=== PATIENT | female | born 2005 | race Two or more races ===

== ENCOUNTER → 2025-01-19 | Outpatient (CLI) | payer MEDICAID ==
[2025-01-19 17:45] LABS: HEMOGLOBIN 10.9 g/dl (12.0-15.5); MEAN CORPUSCULAR HEMOGLOBIN 25.9 pg (27.0-33.0); MEAN CORPUSCULAR HGB CONC 32.1 g/dl (32.0-36.5); MEAN CORPUSCULAR VOLUME 80.8 fl (80.0-96.0); PLATELET COUNT, AUTOMATED 265 10^3/uL (150-450); RED BLOOD COUNT 4.21 10^6/uL (4.00-5.40); WHITE BLOOD COUNT 10.1 10^3/uL (4.0-10.0)
[2025-01-19 18:13] LABS: HIV 1&2 SCREEN NEGATIVE (NEGATIVE)
[2025-01-19 18:21] LABS: HEPATITIS C VIRUS ABY INDEX 0.03 INDEX (<0.8)
[2025-01-19 19:29] LABS: GC DNA AMPLIFICATION NEGATIVE (NEGATIVE)
== END ==
LOC: M PLALAB 14:21
PROVIDERS: ATTEND Obstetrics & Gynecology
DX: Z13.79 Encounter for other screening for genetic and chromosomal anomalies (principal)

== ENCOUNTER → 2025-05-21 | Outpatient (CLI) | payer OTHER ==
[2025-05-21 15:16] LABS: PLATELET COUNT, AUTOMATED 271 10^3/uL (150-450)
[2025-05-21 15:18] LABS: GLUCOSE CHALLENGE TEST 1 HOUR 101 MG/DL (LESS THAN 140)
[2025-05-21 15:48] LABS: HIV 1&2 SCREEN NEGATIVE (NEGATIVE)
[2025-05-21 15:55] LABS: HEPATITIS C VIRUS ABY INDEX 0.02 INDEX (<0.8)
[2025-05-21 16:19] LABS: Trichomonas vaginalis (AMP) NOT DETECTED (NEGATIVE)
[2025-05-21 16:42] LABS: GC DNA AMPLIFICATION NEGATIVE (NEGATIVE)
== END ==
LOC: M PLALAB 12:43
PROVIDERS: ATTEND Nurse Practitioner Family
DX: Z34.82 Encounter for supervision of other normal pregnancy, second trimester (principal)

== ENCOUNTER → 2025-05-21 | Outpatient (CLI) | payer OTHER | LOC: M WHC 11:55 | PROVIDERS: ATTEND Nurse Practitioner Family | DX: Z34.82 Encounter for supervision of other normal pregnancy, second trimester (principal); Z3A.25 25 weeks gestation of pregnancy ==

== ENCOUNTER → 2025-05-22 | Outpatient (CLI) | payer OTHER, MEDICAID ==
[2025-05-22 17:10] LABS: IRON (FE) 38.0 UG/DL (50-170)
[2025-05-22 17:13] LABS: VITAMIN B12 LEVEL 337.0 PG/ML (211-911)
== END ==
LOC: M PLALAB 15:23
PROVIDERS: ATTEND Advanced Practice Midwife
DX: O99.012 Anemia complicating pregnancy, second trimester (principal); Z3A.00 Weeks of gestation of pregnancy not specified

== ENCOUNTER → 2025-05-26 | Outpatient (CLI) | payer OTHER | LOC: M RAD 14:56 | PROVIDERS: ATTEND Advanced Practice Midwife | DX: O36.5992 Maternal care for other known or suspected poor fetal growth, unspecified trimester, fetus 2 (principal); Z3A.27 27 weeks gestation of pregnancy ==

== ENCOUNTER → 2025-06-02 | Outpatient (CLI) | payer OTHER | LOC: M WHC 07:24 | PROVIDERS: ATTEND Advanced Practice Midwife | DX: O36.5990 Maternal care for other known or suspected poor fetal growth, unspecified trimester, not applicable or unspecified (principal); Z3A.00 Weeks of gestation of pregnancy not specified ==

== ENCOUNTER → 2025-06-09 | Outpatient (CLI) | payer OTHER | LOC: M WHC 07:25 | PROVIDERS: ATTEND Advanced Practice Midwife | DX: O36.5993 Maternal care for other known or suspected poor fetal growth, unspecified trimester, fetus 3 (principal); Z3A.29 29 weeks gestation of pregnancy; O32.1XX0 Maternal care for breech presentation, not applicable or unspecified ==

== ENCOUNTER 2025-06-10 09:03 | Outpatient (CLI) | payer OTHER ==
[~2025-06-10] VITALS: Ht 162.6 cm; Wt 57.3 kg
[~2025-06-10 09:03] MED LIST: ALBUTEROL SULFATE 2.5 MG/0.5 ML INH CONCENTRATE NEB SOLN INH PRN; EPINEPHrine INJ 1 MG/ML 1ML AMP IM PRN; diphenhydrAMINE 50 MG/ML VIAL IV PRN
[2025-06-10 09:30] VITALS: BP 96/53; O2SAT 100
[2025-06-10] MEDS: IRON SUCROSE 200MG IVP IV ONE (09:50)
[2025-06-10 10:50] VITALS: BP 98/55; O2SAT 100
== END 2025-06-10 10:50 | disposition home or self-care (01) ==
LOC: M INFU 09:03
PROVIDERS: ATTEND Advanced Practice Midwife
DX: O99.019 Anemia complicating pregnancy, unspecified trimester (principal); Z3A.00 Weeks of gestation of pregnancy not specified
CPT/HCPCS: 96374; J1756

== ENCOUNTER → 2025-06-16 | Outpatient (CLI) | payer OTHER | LOC: M WHC 07:42 | PROVIDERS: ATTEND Advanced Practice Midwife | DX: O36.5920 Maternal care for other known or suspected poor fetal growth, second trimester, not applicable or unspecified (principal); Z3A.30 30 weeks gestation of pregnancy ==

== ENCOUNTER 2025-06-17 08:55 | Outpatient (CLI) | payer OTHER, MEDICAID ==
[~2025-06-17] VITALS: Ht 162.6 cm; Wt 57.2 kg
[2025-06-17 09:15] VITALS: BP 99/54; O2SAT 100
[2025-06-17] MEDS: IRON SUCROSE 200MG IVP IV ONE (09:21)
[2025-06-17 09:45] VITALS: BP 105/54; O2SAT 100
== END 2025-06-17 09:55 | disposition home or self-care (01) ==
LOC: M INFU 08:55
PROVIDERS: ATTEND Advanced Practice Midwife
DX: O99.019 Anemia complicating pregnancy, unspecified trimester (principal); Z3A.00 Weeks of gestation of pregnancy not specified; D64.9 Anemia, unspecified
CPT/HCPCS: 96374; J1756

== ENCOUNTER → 2025-06-19 | Outpatient (CLI) | payer OTHER ==
[2025-06-20 07:06] LABS: RUBELLA IgG FOR TORCH EVAL <0.90 index (Immune >0.99); RUBELLA IgM FOR TORCH EVAL <20.0 AU/mL (0.0-19.9)
== END ==
LOC: M PLALAB 09:43
PROVIDERS: ATTEND Advanced Practice Midwife
DX: O36.5990 Maternal care for other known or suspected poor fetal growth, unspecified trimester, not applicable or unspecified (principal)

== ENCOUNTER → 2025-06-23 | Outpatient (CLI) | payer OTHER | LOC: M WHC 07:40 | PROVIDERS: ATTEND Advanced Practice Midwife | DX: O36.5990 Maternal care for other known or suspected poor fetal growth, unspecified trimester, not applicable or unspecified (principal) ==

== ENCOUNTER 2025-06-24 08:43 | Outpatient (CLI) | payer MEDICAID, OTHER ==
[~2025-06-24] VITALS: Ht 162.6 cm; Wt 58.0 kg
[2025-06-24 09:15] VITALS: BP 130/84; O2SAT 98
[2025-06-24] MEDS: IRON SUCROSE 200MG IVP IV ONE (09:28)
[2025-06-24 09:55] VITALS: BP 124/62; O2SAT 99
== END 2025-06-24 09:55 ==
LOC: M INFU 08:43
PROVIDERS: ATTEND Advanced Practice Midwife
DX: O99.019 Anemia complicating pregnancy, unspecified trimester (principal); Z3A.00 Weeks of gestation of pregnancy not specified; O36.5990 Maternal care for other known or suspected poor fetal growth, unspecified trimester, not applicable or unspecified
CPT/HCPCS: 96374; J1756

== ENCOUNTER → 2025-06-25 | Outpatient (CLI) | payer MEDICAID, OTHER ==
[2025-06-25 11:08] LABS: PLATELET COUNT, AUTOMATED 185 10^3/uL (150-450)
[2025-06-25 11:34] LABS: IRON (FE) 344.0 UG/DL (50-170); PERCENT SATURATION 86.4 % (13.2-45.0)
== END ==
LOC: M PLALAB 09:15
PROVIDERS: ATTEND Obstetrics & Gynecology
DX: O99.019 Anemia complicating pregnancy, unspecified trimester (principal)

== ENCOUNTER → 2025-06-30 | Outpatient (CLI) | payer OTHER | LOC: M WHC 07:35 | PROVIDERS: ATTEND Advanced Practice Midwife | DX: O36.5930 Maternal care for other known or suspected poor fetal growth, third trimester, not applicable or unspecified (principal); Z3A.32 32 weeks gestation of pregnancy ==

== ENCOUNTER → 2025-07-03 | Outpatient (CLI) | payer OTHER ==
[2025-07-03 14:17] LABS: PLATELET COUNT, AUTOMATED 169 10^3/uL (150-450)
== END ==
LOC: M PLALAB 11:00
PROVIDERS: ATTEND Advanced Practice Midwife
DX: O99.012 Anemia complicating pregnancy, second trimester (principal)

== ENCOUNTER → 2025-07-07 | Outpatient (CLI) | payer OTHER | LOC: M WHC 07:33 | PROVIDERS: ATTEND Advanced Practice Midwife | DX: O36.5930 Maternal care for other known or suspected poor fetal growth, third trimester, not applicable or unspecified (principal); Z3A.33 33 weeks gestation of pregnancy ==

== ENCOUNTER → 2025-07-14 | Outpatient (CLI) | payer OTHER ==
[~2025-07-14] MED LIST changes: -ALBUTEROL SULFATE 2.5 MG/0.5 ML INH CONCENTRATE NEB SOLN INH PRN; -EPINEPHrine INJ 1 MG/ML 1ML AMP IM PRN; +PRENTAB9 PO; -diphenhydrAMINE 50 MG/ML VIAL IV PRN
== END ==
LOC: M WHC 07:37
PROVIDERS: ATTEND Advanced Practice Midwife
DX: O36.5990 Maternal care for other known or suspected poor fetal growth, unspecified trimester, not applicable or unspecified (principal)

== ENCOUNTER 2025-07-15 11:12 | Emergency (ER) | payer OTHER ==
[2025-07-15] MEDS ORDERED: PRENTAB9 PO (11:45)
[2025-07-15] MEDS ORDERED: ACETAMINOPHEN 500 MG TAB PO ONE (12:15)
== END 2025-07-15 11:15 | disposition admitted as inpatient to this hospital (09) ==
LOC: M ED 11:12
DX: Z53.21 Procedure and treatment not carried out due to patient leaving prior to being seen by health care provider (principal)

== ENCOUNTER → 2025-07-15 | Outpatient (CLI) | payer OTHER ==
[~2025-07-15] VITALS: Ht 162.6 cm; Wt 60.3 kg
[2025-07-15 11:40] VITALS: BP 114/69
[2025-07-15] MEDS: ACETAMINOPHEN 500 MG TAB PO ONE (12:33)
== END ==
LOC: M LDO 11:18
PROVIDERS: ATTEND Advanced Practice Midwife
DX: O26.893 Other specified pregnancy related conditions, third trimester (principal); O36.5930 Maternal care for other known or suspected poor fetal growth, third trimester, not applicable or unspecified; O99.013 Anemia complicating pregnancy, third trimester; O99.343 Other mental disorders complicating pregnancy, third trimester; R10.2 Pelvic and perineal pain; D50.9 Iron deficiency anemia, unspecified; Z67.11 Type A blood, Rh negative; F31.81 Bipolar II disorder; F81.9 Developmental disorder of scholastic skills, unspecified; Z3A.34 34 weeks gestation of pregnancy
CPT/HCPCS: 59025; G0463

== ENCOUNTER → 2025-07-21 | Outpatient (CLI) | payer OTHER | LOC: M WHC 06:56 | PROVIDERS: ATTEND Advanced Practice Midwife | DX: O36.5993 Maternal care for other known or suspected poor fetal growth, unspecified trimester, fetus 3 (principal); Z3A.35 35 weeks gestation of pregnancy ==

== ENCOUNTER → 2025-07-23 | Outpatient (CLI) | payer OTHER ==
[2025-07-23 14:54] LABS: PLATELET COUNT, AUTOMATED 198 10^3/uL (150-450)
== END ==
LOC: M PLALAB 11:00
PROVIDERS: ATTEND Advanced Practice Midwife
DX: O99.013 Anemia complicating pregnancy, third trimester (principal)

== ENCOUNTER → 2025-07-28 | Outpatient (CLI) | payer OTHER | LOC: M WHC 06:52 | PROVIDERS: ATTEND Advanced Practice Midwife | DX: O36.5990 Maternal care for other known or suspected poor fetal growth, unspecified trimester, not applicable or unspecified (principal) ==

== ENCOUNTER → 2025-07-29 | Outpatient (REF) | payer OTHER, MEDICAID | LOC: M PLALAB 15:47 | PROVIDERS: ATTEND Advanced Practice Midwife | DX: Z34.80 Encounter for supervision of other normal pregnancy, unspecified trimester (principal) ==

== ENCOUNTER → 2025-08-04 | Outpatient (CLI) | payer OTHER | LOC: M WHC 06:46 | PROVIDERS: ATTEND Advanced Practice Midwife | DX: O36.5990 Maternal care for other known or suspected poor fetal growth, unspecified trimester, not applicable or unspecified (principal) ==

== ENCOUNTER → 2025-08-11 | Outpatient (CLI) | payer OTHER | LOC: M WHC 06:58 | PROVIDERS: ATTEND Advanced Practice Midwife | DX: O36.5990 Maternal care for other known or suspected poor fetal growth, unspecified trimester, not applicable or unspecified (principal) ==

== ENCOUNTER 2025-08-16 07:19 | Inpatient (IN) | payer MEDICAID, OTHER ==
[2025-08-16] VITALS (35 sets, daily range): BP systolic 90–119; BP diastolic 52–74; O2SAT 96–99
[~2025-08-16] VITALS: Ht 162.6 cm; Wt 62.9 kg
[2025-08-16] MEDS ORDERED: OXYTOCIN DRIP 30 UNITS in IV 1 EA IV PRN (07:40)
[2025-08-16] MEDS ORDERED: LIDOCAINE 1% MDV 20 ML VIAL INFIL PRN (07:40)
[2025-08-16] MEDS ORDERED: FERR325T3 PO (07:51)
[2025-08-16] MEDS ORDERED: ACET-897 PO (07:52)
[2025-08-16] MEDS ORDERED: HOME MED LIST COMPLETE! XX SCH (07:55)
[2025-08-16 08:31] LABS: PLATELET COUNT, AUTOMATED 193 10^3/uL (150-450)
[2025-08-16] MEDS: miSOPROStol 50 MCG 1/2 TABLET PO SCH (08:58)
[2025-08-16] MEDS ORDERED: **PENDING PCN ENTRY XX SCH (09:00)
[2025-08-16 09:23] LABS: HIV 1&2 SCREEN NEGATIVE (NEGATIVE)
[2025-08-16 09:31] LABS: HEPATITIS C VIRUS ABY INDEX < 0.02 INDEX (<0.8)
[2025-08-16] MEDS ORDERED: PEN G POT 3,000,000 UNIT/50 ML 3,000,000 UNIT in IV 1 EA IV SCH (11:40)
[2025-08-16] MEDS: ACETAMINOPHEN 500 MG TAB PO PRN (16:01)
[2025-08-16] MEDS: LR 1,000 ML IV SCH (18:30)
[2025-08-16] MEDS: PENICILLIN G POTASSIUM 5 MU IV 5 MU in DEXTROSE 5% (D5W) MINI-BAG PLU 100 ML IV STA (18:49)
[2025-08-16] MEDS ORDERED: FENTANYL 2 MCG/ML ROPIVACAINE 0.2% IN 0.9% NACL 100 ML IVBAG As Ordered ONE (19:28)
[2025-08-16] MEDS ORDERED: diphenhydrAMINE 50 MG/ML VIAL IV PRN (19:35)
[2025-08-16] MEDS ORDERED: LR 500 ML IV PRN (19:35)
[2025-08-16] MEDS ORDERED: ONDANSETRON 4MG/2ML VIAL IV PRN (19:35)
[2025-08-16] MEDS ORDERED: EPIDURAL/PCA KEYS XX PRN (19:35)
[2025-08-16] MEDS ORDERED: NALOXONE INJ 0.4 MG/1 ML VIAL IV PRN (19:35)
[2025-08-16] MEDS: FENTANYL/ROPIVACAINE/NACL BAG 100 ML EPIDURAL SCH (20:06)
[2025-08-16] MEDS: OXYTOCIN DRIP 30 UNITS in IV 1 EA IV SCH (21:22)
[2025-08-16] MEDS: PEN G POT 3,000,000 UNIT/50 ML 3,000,000 UNIT in IV 1 EA IV SCH (23:00)
[2025-08-17] VITALS (34 sets, daily range): BP systolic 98–151; BP diastolic 56–87; O2SAT 97
[2025-08-17] MEDS ORDERED: METHYLERGONOVINE MALEATE 0.2 MG/ML 1 ML VIAL As Ordered ONE (09:50)
[2025-08-17] MEDS: METHYLERGONOVINE MALEATE 0.2 MG/ML 1 ML VIAL IM STA (09:54)
[2025-08-17 10:06] LABS: CORD GAS ABE V -9.7; CORD GAS HCO3 V 18.3 MMOL/L; CORD GAS O2 SAT V 56.1 %; CORD GAS PCO2 V 47.9 mmHg; CORD GAS PH V 7.2 UNITS; CORD GAS PO2 V 27.2 mmHg; CORD GAS SBC V 16.0 MMOL/L; CORD GAS TCO2 V 19.8 MMOL/L
[2025-08-17 10:09] LABS: CORD GAS ABE A -13.8; CORD GAS HCO3 A 17.6 MMOL/L; CORD GAS O2 SAT A 47.5 %; CORD GAS PCO2 A 65.2 mmHg; CORD GAS PH A 7.049 UNITS; CORD GAS PO2 A 27.2 mmHg; CORD GAS SBC A 13.1 MMOL/L; CORD GAS TCO2 A 19.6 MMOL/L
[2025-08-17] MEDS ORDERED: ANUSOL HC CREAM 30 GM TOP PRN (10:15)
[2025-08-17] MEDS ORDERED: RHOGAM 300MCG (1500IU) INJ IM SCH (10:15)
[2025-08-17] MEDS ORDERED: ACETAMINOPHEN 325 MG TAB PO PRN (10:15)
[2025-08-17] MEDS ORDERED: MOM 30 ML SUSPENSION UDC PO PRN (10:15)
[2025-08-17] MEDS ORDERED: ONDANSETRON 4MG/2ML VIAL IV PRN (10:15)
[2025-08-17] MEDS: PRENATAL VITAMINS CHEWABLE TABLET PO SCH (11:38)
[2025-08-17] MEDS: DOCUSATE SODIUM 100 MG CAPSULE PO PRN (16:12)
[2025-08-17] MEDS: IBUPROFEN 800 MG TAB PO PRN (16:12)
[2025-08-17] MEDS: DIBUCAINE 1% OINTMENT 30 GM TOP PRN (16:13)
[2025-08-18 05:48] VITALS: BP 107/62; O2SAT 97
[2025-08-18] MEDS: IBUPROFEN 600 MG TAB PO PRN (14:09)
[2025-08-18 18:00] VITALS: BP 113/60; O2SAT 100
[2025-08-18] MEDS: ACETAMINOPHEN 500 MG TAB PO PRN (19:30)
[2025-08-19 06:05] VITALS: BP 115/56; O2SAT 98
[2025-08-19] MEDS: FLUZONE VACCINE TRI PF(25-26) 0.5ML SYRINGE IM.IMMUN ONE (11:11)
[2025-08-19] MEDS: MEASLES,MUMPS,RUBELLA VACCINE INJ (MMR-II) SC.IMMUN ONE (11:12)
== END 2025-08-19 12:40 | disposition home or self-care (01) | DRG 560 ==
LOC: M LDI 07:19 → M OBS 08-17 12:05
PROVIDERS: ADMIT Obstetrics & Gynecology; ATTEND Obstetrics & Gynecology
PROC: 3E0P7GC Introduction of Other Therapeutic Substance into Female Reproductive, Via Natural or Artificial Opening (ICD-10-PCS; 2025-08-16)
PROC: 3E033VJ Introduction of Other Hormone into Peripheral Vein, Percutaneous Approach (ICD-10-PCS; 2025-08-16)
PROC: 10E0XZZ Delivery of Products of Conception, External Approach (ICD-10-PCS; principal; 2025-08-17)
PROC: 10907ZC Drainage of Amniotic Fluid, Therapeutic from Products of Conception, Via Natural or Artificial Opening (ICD-10-PCS; 2025-08-17)
PROC: 0HQ9XZZ Repair Perineum Skin, External Approach (ICD-10-PCS; 2025-08-17)
DX: O40.3XX0 Polyhydramnios, third trimester, not applicable or unspecified (principal); O70.0 First degree perineal laceration during delivery; Z37.0 Single live birth; Z3A.39 39 weeks gestation of pregnancy